=== PATIENT | male | born 1965 | race Caucasian/White ===

== ENCOUNTER → 2021-07-21 | Outpatient (CLI) | payer OTHER ==
[~2021-07-21] MED LIST: IBUPROFEN 800800 M1 PO; KEFLEX500 M1 PO; PREDNISONE 20 M20 M1 PO; TYLENOL WITH CO1 TA1 PO; ZPAK PO
== END ==
LOC: RAD 13:57
PROVIDERS: ATTEND Family Medicine
DX: M19.011 Primary osteoarthritis, right shoulder (principal); R91.1 Solitary pulmonary nodule